=== PATIENT | female | born 1940 | race Hispanic/Latino ===

== ENCOUNTER 2020-07-29 11:21 | Emergency (ER) | payer OTHER, MEDICARE ==
[2020-07-29] MEDS ORDERED: LEVOFLOXACIN 500 MG TABLET ONE (12:21)
[2020-07-29] MEDS ORDERED: AZITHROMYCIN 250 MG TABLET PO ONE (12:21)
== END 2020-07-29 12:34 | disposition home or self-care (01) ==
LOC: EDH 11:21
DX: U07.1 COVID-19 (principal); J12.89 Other viral pneumonia; E11.9 Type 2 diabetes mellitus without complications; I10 Essential (primary) hypertension; E78.00 Pure hypercholesterolemia, unspecified; Z90.49 Acquired absence of other specified parts of digestive tract
CPT/HCPCS: 71045

== ENCOUNTER 2023-06-14 12:30 | Inpatient (IN) | payer OTHER, MEDICARE ==
[~2023-06-14] VITALS: Ht 152.4 cm; Wt 86.4 kg
[2023-06-14 14:27] LABS: BASOPHILS # (AUTO) 0.03 K/uL (0.00-0.20); BASOPHILS % (AUTO) 0.6 % (0.0-5.0); EOSINOPHILS # (AUTO) 0.17 K/uL (0.00-0.70); EOSINOPHILS % (AUTO) 3.6 % (0.0-8.0); HEMATOCRIT 25.2 % (36-48); IMMATURE GRANULOCYTE ABSOLUTE 0.05 K/uL (0-1); LYMPHOCYTES # (AUTO) 0.9 K/uL (1.0-4.8); LYMPHOCYTES % (AUTO) 19.5 % (21.0-51.0); MEAN CORPUSCULAR HGB CONC 32.9 g/dL (32.0-36.0); MEAN CORPUSCULAR VOLUME 88.1 fL (79-99); MONOCYTES # (AUTO) 0.5 K/uL (0.1-1.0); MONOCYTES % (AUTO) 10.1 % (3.0-13.0); NEUTROPHILS # (AUTO) 3.1 K/uL (1.8-7.7); NEUTROPHILS % (AUTO) 65.1 % (40.0-77.0); PLATELET COUNT (AUTO) 189 K/uL (130-400); RED BLOOD CELL COUNT(AUTO) 2.86 MIL/uL (4.00-5.50); RED CELL DISTRIBUTION WIDTH 14.6 % (11.0-15.5); WHITE BLOOD COUNT (AUTO) 4.7 K/uL (4.8-10.8)
[2023-06-14 14:32] LABS: BILIRUBIN,URINE NEGATIVE (NEGATIVE); COLOR,URINE YELLOW (YELLOW); GLUCOSE, URINE (UA) NEGATIVE (NEGATIVE); KETONES,URINE NEGATIVE (NEGATIVE); LEUKOCYTE ESTERASE ,URINE 500 Leu/uL (NEGATIVE); NITRATE,URINE NEGATIVE (NEGATIVE); OCCULT BLOOD,URINE NEGATIVE (NEGATIVE); PROTEIN,URINE 50 mg/dL (NEGATIVE); UROBILINOGEN,URINE 0.2 mg/dL (0.2-1.0)
[2023-06-14 14:33] LABS: ADD UA MICROSCOPIC YES; APPEARANCE,URINE HAZY (CLEAR)
[2023-06-14 14:35] LABS: BACTERIA,URINE FEW /HPF (None Seen); MUCUS,URINE RARE LPF (None Seen); RBC,URINE 0-1 /HPF (0-1); SQUAMOUS EPITHELIAL CELL,UR FEW /HPF (0-2)
[2023-06-14 14:36] LABS: CREATININE 2.9 mg/dL (0.5-1.5); POTASSIUM 3.9 mmol/L (3.5-5.1)
[2023-06-14 14:50] LABS: MAGNESIUM 1.9 mg/dL (1.80-2.40); THYROID STIMULATING HORMONE 5.14 uIU/mL (0.36-3.74)
[2023-06-14 14:54] LABS: B-TYPE NATRIURETIC PEPTIDE 142 pg/mL (0-100)
[2023-06-14] MEDS ORDERED: CEFTRIAXONE 2GM VIAL IVPB ONE (16:00)
[2023-06-14] MEDS ORDERED: CARV3.12 PO (16:17)
[2023-06-14] MEDS ORDERED: ISOS30TA92 PO (16:17)
[2023-06-14] MEDS ORDERED: HYDR25TA PO (16:17)
[2023-06-14] MEDS ORDERED: CALC30CA PO (16:17)
[2023-06-14] MEDS ORDERED: DONE5TAB33 PO (16:17)
[2023-06-14] MEDS ORDERED: AMLO-258 PO (16:17)
[2023-06-14] MEDS ORDERED: DOXA2TAB2 PO (16:17)
[2023-06-14] MEDS ORDERED: LOSA100T59 PO (16:17)
[2023-06-14] MEDS ORDERED: CLOP75TA32 PO (16:17)
[2023-06-14] MEDS ORDERED: ATOR40TA71 PO (16:17)
[2023-06-14] MEDS ORDERED: RANO500T6 PO (16:17)
[2023-06-14] MEDS ORDERED: MAGNESIUM 2GM PREMIX 50ML 50 ML IV PRN (17:30)
[2023-06-14] MEDS ORDERED: POTASSIUM CHLORIDE 10MEQ/100ML 100 ML IV PRN (17:30)
[2023-06-14] MEDS: CEFTRIAXONE 1G VIAL IVPB SCH (17:30)
[2023-06-14] MEDS ORDERED: DEXTROSE 50%-WATER 50 ML DISP.SYRIN IV PRN (17:30)
[2023-06-14] MEDS ORDERED: GLUCAGON 1MG KIT 1 MG ML IM PRN (17:30)
[2023-06-14 17:39] LABS: HEMOGLOBIN A1C 5.4 % (4.0-6.0)
[2023-06-14 18:15] VITALS: BP 124/69; PULSE 67; RESP 17
[2023-06-14 18:58] VITALS: O2SAT 98
[2023-06-14] MEDS: CARVEDILOL 3.125 MG TABLET PO SCH (19:56)
[2023-06-14] MEDS: DOXAZOSIN MESYLATE 2 MG TABLET PO SCH (19:56)
[2023-06-14 20:00] VITALS: BP 133/53; PULSE 61; RESP 16
[2023-06-14] MEDS: INSULIN HUMULIN R 100 UNIT/ML 3ML SQ SCH (20:01)
[2023-06-15] VITALS (7 sets, daily range): BP systolic 118–142; BP diastolic 54–59; PULSE 55–71; RESP 16–18; O2SAT 100
[2023-06-15] MEDS: CEFTRIAXONE 1G VIAL IVPB SCH ×2 (05:02→17:44)
[2023-06-15] MEDS: INSULIN HUMULIN R 100 UNIT/ML 3ML SQ SCH ×4 (06:13→20:42)
[2023-06-15] MEDS: DOXAZOSIN MESYLATE 2 MG TABLET PO SCH ×2 (08:26→20:40)
[2023-06-15] MEDS: AMLODIPINE 5 MG TAB PO SCH (08:26)
[2023-06-15] MEDS: ATORVASTATIN 40 MG TABLET PO SCH (08:29)
[2023-06-15] MEDS: LOSARTAN 100 MG TABLET PO SCH (08:29)
[2023-06-15] MEDS: DONEPEZIL HCL 5 MG TAB PO SCH (08:29)
[2023-06-15] MEDS: CARVEDILOL 3.125 MG TABLET PO SCH ×2 (08:29→20:40)
[2023-06-15] MEDS ORDERED: NON-FORMULARY MEDICATION 1 EACH (Amlodipine Besylate 10 MG) PO SCH (09:00)
[2023-06-15] MEDS: CLOPIDOGREL 75MG TAB PO SCH (09:00)
[2023-06-15 16:00] LABS: BASOPHILS # (AUTO) 0.03 K/uL (0.00-0.20); BASOPHILS % (AUTO) 0.6 % (0.0-5.0); EOSINOPHILS # (AUTO) 0.25 K/uL (0.00-0.70); EOSINOPHILS % (AUTO) 5.3 % (0.0-8.0); HEMATOCRIT 26.7 % (36-48); IMMATURE GRANULOCYTE ABSOLUTE 0.03 K/uL (0-1); LYMPHOCYTES # (AUTO) 0.9 K/uL (1.0-4.8); LYMPHOCYTES % (AUTO) 19.8 % (21.0-51.0); MEAN CORPUSCULAR HEMOGLOBIN 28.1 pg (27.0-33.0); MEAN CORPUSCULAR HGB CONC 31.5 g/dL (32.0-36.0); MEAN CORPUSCULAR VOLUME 89.3 fL (79-99); MONOCYTES # (AUTO) 0.5 K/uL (0.1-1.0); MONOCYTES % (AUTO) 9.9 % (3.0-13.0); NEUTROPHILS % (AUTO) 63.8 % (40.0-77.0); PLATELET COUNT (AUTO) 198 K/uL (130-400); RED BLOOD CELL COUNT(AUTO) 2.99 MIL/uL (4.00-5.50); RED CELL DISTRIBUTION WIDTH 14.6 % (11.0-15.5); WHITE BLOOD COUNT (AUTO) 4.8 K/uL (4.8-10.8)
[2023-06-15 16:11] LABS: CREATININE 2.6 mg/dL (0.5-1.5); POTASSIUM 4.2 mmol/L (3.5-5.1)
[2023-06-15 16:20] LABS: ALBUMIN 3.4 g/dL (3.5-5.0); BILIRUBIN,TOTAL 0.3 mg/dL (0.2-1.0); TOTAL PROTEIN, SERUM 6.7 g/dL (6.0-8.3)
[2023-06-16] VITALS (7 sets, daily range): BP systolic 114–141; BP diastolic 44–87; PULSE 65–74; RESP 16–20; O2SAT 100
[2023-06-16 04:38] LABS: BASOPHILS # (AUTO) 0.03 K/uL (0.00-0.20); BASOPHILS % (AUTO) 0.6 % (0.0-5.0); EOSINOPHILS # (AUTO) 0.31 K/uL (0.00-0.70); EOSINOPHILS % (AUTO) 6.4 % (0.0-8.0); HEMATOCRIT 25.3 % (36-48); IMMATURE GRANULOCYTE ABSOLUTE 0.05 K/uL (0-1); LYMPHOCYTES # (AUTO) 1.1 K/uL (1.0-4.8); LYMPHOCYTES % (AUTO) 22.5 % (21.0-51.0); MEAN CORPUSCULAR HEMOGLOBIN 27.9 pg (27.0-33.0); MEAN CORPUSCULAR VOLUME 87.2 fL (79-99); MONOCYTES # (AUTO) 0.5 K/uL (0.1-1.0); MONOCYTES % (AUTO) 9.9 % (3.0-13.0); NEUTROPHILS # (AUTO) 2.9 K/uL (1.8-7.7); NEUTROPHILS % (AUTO) 59.6 % (40.0-77.0); PLATELET COUNT (AUTO) 198 K/uL (130-400); RED CELL DISTRIBUTION WIDTH 14.6 % (11.0-15.5); WHITE BLOOD COUNT (AUTO) 4.9 K/uL (4.8-10.8)
[2023-06-16 04:50] LABS: ALBUMIN 3.2 g/dL (3.5-5.0); BILIRUBIN,TOTAL 0.2 mg/dL (0.2-1.0); CREATININE 2.6 mg/dL (0.5-1.5); POTASSIUM 3.7 mmol/L (3.5-5.1); TOTAL PROTEIN, SERUM 6.3 g/dL (6.0-8.3)
[2023-06-16] MEDS: CEFTRIAXONE 1G VIAL IVPB SCH ×2 (05:52→17:03)
[2023-06-16] MEDS: INSULIN HUMULIN R 100 UNIT/ML 3ML SQ SCH ×4 (06:04→20:50)
[2023-06-16] MEDS: DONEPEZIL HCL 5 MG TAB PO SCH (09:09)
[2023-06-16] MEDS: LOSARTAN 100 MG TABLET PO SCH (09:09)
[2023-06-16] MEDS: CLOPIDOGREL 75MG TAB PO SCH (09:09)
[2023-06-16] MEDS: ATORVASTATIN 40 MG TABLET PO SCH (09:09)
[2023-06-16] MEDS: FUROSEMIDE 20MG VIAL IV SCH (09:09)
[2023-06-16] MEDS: AMLODIPINE 5 MG TAB PO SCH (09:09)
[2023-06-16] MEDS: DOXAZOSIN MESYLATE 2 MG TABLET PO SCH ×2 (09:09→20:52)
[2023-06-16] MEDS: CARVEDILOL 3.125 MG TABLET PO SCH (09:10)
[2023-06-16] MEDS: CARVEDILOL 6.25 MG TABLET PO SCH (20:52)
[2023-06-17] VITALS: BP 122/50; PULSE 66; RESP 18
[2023-06-17 04:00] VITALS: BP 144/57; PULSE 65; RESP 19
[2023-06-17 04:36] LABS: BASOPHILS # (AUTO) 0.03 K/uL (0.00-0.20); BASOPHILS % (AUTO) 0.6 % (0.0-5.0); EOSINOPHILS # (AUTO) 0.31 K/uL (0.00-0.70); IMMATURE GRANULOCYTE ABSOLUTE 0.06 K/uL (0-1); LYMPHOCYTES # (AUTO) 1.3 K/uL (1.0-4.8); LYMPHOCYTES % (AUTO) 25.5 % (21.0-51.0); MEAN CORPUSCULAR HEMOGLOBIN 28.8 pg (27.0-33.0); MEAN CORPUSCULAR HGB CONC 32.8 g/dL (32.0-36.0); MEAN CORPUSCULAR VOLUME 87.7 fL (79-99); MONOCYTES # (AUTO) 0.5 K/uL (0.1-1.0); MONOCYTES % (AUTO) 10.3 % (3.0-13.0); NEUTROPHILS # (AUTO) 2.9 K/uL (1.8-7.7); NEUTROPHILS % (AUTO) 56.4 % (40.0-77.0); PLATELET COUNT (AUTO) 179 K/uL (130-400); RED BLOOD CELL COUNT(AUTO) 2.85 MIL/uL (4.00-5.50); RED CELL DISTRIBUTION WIDTH 14.5 % (11.0-15.5); WHITE BLOOD COUNT (AUTO) 5.1 K/uL (4.8-10.8)
[2023-06-17 04:45] LABS: BILIRUBIN,TOTAL 0.3 mg/dL (0.2-1.0); CREATININE 2.4 mg/dL (0.5-1.5); POTASSIUM 3.4 mmol/L (3.5-5.1); TOTAL PROTEIN, SERUM 6.3 g/dL (6.0-8.3)
[2023-06-17] MEDS: CEFTRIAXONE 1G VIAL IVPB SCH ×2 (04:56→20:52)
[2023-06-17] MEDS: INSULIN HUMULIN R 100 UNIT/ML 3ML SQ SCH ×4 (06:33→21:01)
[2023-06-17 08:00] VITALS: BP 119/55; PULSE 66; RESP 19; O2SAT 100
[2023-06-17] MEDS: DONEPEZIL HCL 5 MG TAB PO SCH (08:17)
[2023-06-17] MEDS: FUROSEMIDE 20MG VIAL IV SCH (08:18)
[2023-06-17] MEDS: AMLODIPINE 5 MG TAB PO SCH (08:21)
[2023-06-17] MEDS: CARVEDILOL 6.25 MG TABLET PO SCH ×2 (08:21→20:53)
[2023-06-17] MEDS: LOSARTAN 100 MG TABLET PO SCH (08:22)
[2023-06-17] MEDS: ATORVASTATIN 40 MG TABLET PO SCH (08:22)
[2023-06-17] MEDS: CLOPIDOGREL 75MG TAB PO SCH (08:23)
[2023-06-17] MEDS: DOXAZOSIN MESYLATE 2 MG TABLET PO SCH ×2 (08:27→20:53)
[2023-06-17 11:30] VITALS: BP 132/70; PULSE 69; RESP 18
[2023-06-17] MEDS ORDERED: REGADENOSON 0.4 MG/5 ML PF SYG IVP SCH (15:30)
[2023-06-17 20:08] VITALS: BP 151/67; PULSE 68; RESP 18
[2023-06-17 23:57] VITALS: BP 115/52; PULSE 66; RESP 16
[2023-06-18 00:45] VITALS: O2SAT 95
[2023-06-18 04:11] VITALS: BP 137/54; PULSE 68; RESP 18
[2023-06-18] MEDS: INSULIN HUMULIN R 100 UNIT/ML 3ML SQ SCH ×2 (05:21→14:08)
[2023-06-18 08:00] VITALS: BP 137/65; PULSE 74; RESP 16; O2SAT 97
[2023-06-18 08:40] LABS: BASOPHILS # (AUTO) 0.06 K/uL (0.00-0.20); BASOPHILS % (AUTO) 1.2 % (0.0-5.0); EOSINOPHILS # (AUTO) 0.27 K/uL (0.00-0.70); EOSINOPHILS % (AUTO) 5.6 % (0.0-8.0); HEMATOCRIT 27.3 % (36-48); IMMATURE GRANULOCYTE ABSOLUTE 0.03 K/uL (0-1); LYMPHOCYTES # (AUTO) 0.8 K/uL (1.0-4.8); LYMPHOCYTES % (AUTO) 16.5 % (21.0-51.0); MEAN CORPUSCULAR HEMOGLOBIN 28.2 pg (27.0-33.0); MEAN CORPUSCULAR HGB CONC 32.6 g/dL (32.0-36.0); MEAN CORPUSCULAR VOLUME 86.4 fL (79-99); MONOCYTES # (AUTO) 0.4 K/uL (0.1-1.0); MONOCYTES % (AUTO) 7.2 % (3.0-13.0); NEUTROPHILS # (AUTO) 3.4 K/uL (1.8-7.7); NEUTROPHILS % (AUTO) 68.9 % (40.0-77.0); PLATELET COUNT (AUTO) 211 K/uL (130-400); RED BLOOD CELL COUNT(AUTO) 3.16 MIL/uL (4.00-5.50); RED CELL DISTRIBUTION WIDTH 14.6 % (11.0-15.5); WHITE BLOOD COUNT (AUTO) 4.9 K/uL (4.8-10.8)
[2023-06-18 08:57] LABS: ALBUMIN 3.5 g/dL (3.5-5.0); BILIRUBIN,TOTAL 0.4 mg/dL (0.2-1.0); CREATININE 2.4 mg/dL (0.5-1.5); POTASSIUM 3.5 mmol/L (3.5-5.1); TOTAL PROTEIN, SERUM 6.9 g/dL (6.0-8.3)
[2023-06-18] MEDS: CEFTRIAXONE 1G VIAL IVPB SCH (09:22)
[2023-06-18] MEDS: FUROSEMIDE 20MG VIAL IV SCH (09:23)
[2023-06-18] MEDS: CLOPIDOGREL 75MG TAB PO SCH (09:23)
[2023-06-18] MEDS: DOXAZOSIN MESYLATE 2 MG TABLET PO SCH (09:23)
[2023-06-18] MEDS: AMLODIPINE 5 MG TAB PO SCH (09:23)
[2023-06-18] MEDS: DONEPEZIL HCL 5 MG TAB PO SCH (09:23)
[2023-06-18] MEDS: LOSARTAN 100 MG TABLET PO SCH (09:23)
[2023-06-18] MEDS: CARVEDILOL 6.25 MG TABLET PO SCH (09:24)
[2023-06-18] MEDS: ATORVASTATIN 40 MG TABLET PO SCH (09:24)
[2023-06-18 11:06] VITALS: BP 118/55; PULSE 69; RESP 17
[2023-06-18] MEDS ORDERED: CEPH500B PO (14:51)
== END 2023-06-18 16:05 | disposition home or self-care (01) | DRG 280 ==
LOC: EDH 12:30 → EDHIP 16:25 → OBSVTOIN 16:25 → 4BH 18:15
PROVIDERS: ADMIT Hospitalist; ATTEND Hospitalist
PROC: 4A02XM4 Measurement of Cardiac Total Activity, External Approach (ICD-10-PCS; principal; 2023-06-17)
PROC: 3E033HZ Introduction of Radioactive Substance into Peripheral Vein, Percutaneous Approach (ICD-10-PCS; 2023-06-17)
DX: I21.4 Non-ST elevation (NSTEMI) myocardial infarction (principal); I50.33 Acute on chronic diastolic (congestive) heart failure; I13.0 Hypertensive heart and chronic kidney disease with heart failure and stage 1 through stage 4 chronic kidney disease, or unspecified chronic kidney disease; N17.9 Acute kidney failure, unspecified; N39.0 Urinary tract infection, site not specified; I95.1 Orthostatic hypotension; E83.42 Hypomagnesemia; N18.9 Chronic kidney disease, unspecified; E11.22 Type 2 diabetes mellitus with diabetic chronic kidney disease; E11.65 Type 2 diabetes mellitus with hyperglycemia; E66.9 Obesity, unspecified; B96.89 Other specified bacterial agents as the cause of diseases classified elsewhere; D64.9 Anemia, unspecified; E78.00 Pure hypercholesterolemia, unspecified; I25.10 Atherosclerotic heart disease of native coronary artery without angina pectoris; B96.1 Klebsiella pneumoniae [K. pneumoniae] as the cause of diseases classified elsewhere; Z68.33 Body mass index [BMI] 33.0-33.9, adult; Z79.899 Other long term (current) drug therapy; Z79.84 Long term (current) use of oral hypoglycemic drugs
CPT/HCPCS: 36415; 70450; 70486; 71045; 72125; 78452; 80048; 80053; 81001; 82550; 82948; 83036; 83735; 83874; 83880; 84443; 84484; 85025; 85378; 87077; 87088; 87186; 93005; 93017; 93306; 93970; 96365; 96374; A9500; G0378; J0696; J1815; J1940; J2785